=== PATIENT | female | born 1950 | race Caucasian/White ===

== ENCOUNTER → 2019-02-18 | Outpatient (CLI) | payer MEDICARE, BC ==
[2019-02-18 10:13] LABS: EOS # 0.1 (0.04-0.40); EOS % 1.4 % (1.0-5.0); HEMATOCRIT 42.5 % (37.0-47.0); HEMOGLOBIN 14.1 g/dL (12.5-16.0); LYMPH# 1.9 (1.50-4.00); MEAN CELL VOLUME 91 fl (78-100); MEAN CORPUSCULAR HEMOGLOBIN 30 pg (27-31); MEAN CORPUSCULAR HGB CONC 33 g/dL (33-37); MEAN PLATELET VOLUME 9.2 fl (7.4-10.4); NEU # 6.4 (1.40-6.50); PLATELET COUNT 347 K/mm3 (130-400); RED BLOOD COUNT 4.69 M/mm3 (4.10-5.30); WHITE BLOOD COUNT 9.4 K/mm3 (4.8-10.8)
[2019-02-18 10:21] LABS: ALBUMIN 4.3 g/dL (3.4-4.8); POTASSIUM 3.5 mmol/L (3.5-5.1)
[2019-02-18 10:22] LABS: CALCIUM 10.9 mg/dL (8.3-10.5)
[2019-02-18 10:23] LABS: TOTAL PROTEIN 7.4 g/dL (6.2-8.1)
[2019-02-18 10:25] LABS: TOTAL BILIRUBIN 0.5 mg/dL (0.2-1.2)
[2019-02-18 11:16] LABS: ERYTHROCYTE SEDIMENTATION RATE 23 mm/hr (0-30)
[2019-02-18 15:16] LABS: PH-URINE 5.5 (5.0 - 8.0); URINE APPEARANCE HAZY; URINE COLOR YELLOW; URINE PROTEIN(semi-quant) TRACE mg/dL (NEGATIVE)
[2019-02-18 15:17] LABS: URINE BILIRUBIN NEGATIVE (NEGATIVE); URINE BLOOD NEGATIVE (NEGATIVE); URINE KETONE TRACE (NEGATIVE); URINE LEUKOCYTE ESTERASE TRACE (NEGATIVE); URINE MUCUS PRESENT (NOT PRESENT); URINE NITRATE NEGATIVE (NEGATIVE); URINE UROBILINOGEN NORMAL (NORMAL)
== END ==
LOC: LAB 09:59
PROVIDERS: Internal Medicine
DX: E11.9 Type 2 diabetes mellitus without complications (principal); E78.5 Hyperlipidemia, unspecified; I10 Essential (primary) hypertension; K90.9 Intestinal malabsorption, unspecified; I47.1 Supraventricular tachycardia

== ENCOUNTER → 2019-03-22 | Outpatient (CLI) | payer MEDICARE, BC ==
[2019-03-22 07:41] LABS: CLUE CELLS NOT OBSERVED (Not Observd)
== END ==
LOC: LAB 07:34
PROVIDERS: Nurse Practitioner
DX: N89.8 Other specified noninflammatory disorders of vagina (principal)
CPT/HCPCS: Q0111

== ENCOUNTER → 2019-05-25 | Outpatient (CLI) | payer MEDICARE, BC | LOC: LAB 07:23 | DX: E11.9 Type 2 diabetes mellitus without complications (principal); I10 Essential (primary) hypertension; I47.1 Supraventricular tachycardia; E78.5 Hyperlipidemia, unspecified ==

== ENCOUNTER 2019-08-11 07:21 | Emergency (ER) | payer MEDICARE, BC ==
[~2019-08-11] VITALS: Ht 157.5 cm; Wt 86.4 kg
[2019-08-11] MEDS ORDERED: BYDUREON B2 MG/0.85 (08:22)
[2019-08-11] MEDS ORDERED: PIOGLITAZONE HY45 MG PO (08:23)
[2019-08-11] MEDS ORDERED: IBU800 M1 PO (08:23)
[2019-08-11] MEDS ORDERED: SPIRONOLACTONE50 M1 PO (08:23)
[2019-08-11] MEDS ORDERED: HYDROCHLOROTHIA50 M1 PO (08:24)
[2019-08-11] MEDS ORDERED: FLONASE ALLERG9.9 ML NS (08:25)
[2019-08-11] MEDS ORDERED: GERITOL COMPLET1 TA1 PO (08:42)
[2019-08-11] MEDS ORDERED: FEXOFENADINE H180 M1 PO (08:42)
[2019-08-11] MEDS ORDERED: [UNRECOGNIZED DRUG - OTHER] PO (08:44)
[2019-08-11 09:20] LABS: HEMOGLOBIN 15.1 g/dL (12.5-16.0); MEAN CELL VOLUME 89 fl (78-100); MEAN CORPUSCULAR HEMOGLOBIN 31 pg (27-31); MEAN CORPUSCULAR HGB CONC 34 g/dL (33-37); MEAN PLATELET VOLUME 9.5 fl (7.4-10.4); PLATELET COUNT 388 K/mm3 (130-400); RED BLOOD COUNT 4.93 M/mm3 (4.10-5.30); RED CELL DISTRIBUTION WIDTH 13.2 % (11.5-14.5); WHITE BLOOD COUNT 11.2 K/mm3 (4.8-10.8)
[2019-08-11 09:26] LABS: ALBUMIN 4.7 g/dL (3.4-4.8)
[2019-08-11 09:27] LABS: CALCIUM 10.6 mg/dL (8.3-10.5)
[2019-08-11 09:29] LABS: TOTAL PROTEIN 7.7 g/dL (6.2-8.1)
[2019-08-11 09:30] LABS: PROTHROMBIN TIME 10.4 SECONDS (9.0-12.0); TOTAL BILIRUBIN 0.7 mg/dL (0.2-1.2)
[2019-08-11 09:36] LABS: LYMPHOCYTE 13 % (20-51); MONOCYTE 7 % (3-10); NEUTROPHILS 80 % (42-75)
[2019-08-11] MEDS ORDERED: POTASSIUM CHLO20 ME3 PO (11:22)
[2019-08-11 11:33] VITALS: BP 143/61
== END 2019-08-11 12:05 | disposition home or self-care (01) ==
LOC: ED 07:21
PROVIDERS: Physician Assistant
DX: K60.2 Anal fissure, unspecified (principal); K62.5 Hemorrhage of anus and rectum; E87.6 Hypokalemia; E87.1 Hypo-osmolality and hyponatremia; E11.9 Type 2 diabetes mellitus without complications; K21.9 Gastro-esophageal reflux disease without esophagitis; Z79.1 Long term (current) use of non-steroidal anti-inflammatories (NSAID); Z79.84 Long term (current) use of oral hypoglycemic drugs; Z85.828 Personal history of other malignant neoplasm of skin; Z87.19 Personal history of other diseases of the digestive system; Z88.0 Allergy status to penicillin; Z88.1 Allergy status to other antibiotic agents; Z88.8 Allergy status to other drugs, medicaments and biological substances
CPT/HCPCS: Q9967

== ENCOUNTER → 2019-09-27 | Outpatient (CLI) | payer MEDICARE, BC ==
[~2019-09-27] MED LIST: BYDUREON B2 MG/0.85; FEXOFENADINE H180 M1 PO; FLONASE ALLERG9.9 ML NS; GERITOL COMPLET1 TA1 PO; HYDROCHLOROTHIA50 M1 PO; IBU800 M1 PO; PIOGLITAZONE HY45 MG PO; POTASSIUM CHLO20 ME3 PO; SPIRONOLACTONE50 M1 PO; [UNRECOGNIZED DRUG - OTHER] PO
[2019-09-27 07:49] LABS: EOS # 0.1 (0.04-0.40); EOS % 1.1 % (1.0-5.0); HEMATOCRIT 41.4 % (37.0-47.0); HEMOGLOBIN 13.7 g/dL (12.5-16.0); LYMPH# 1.5 (1.50-4.00); MEAN CELL VOLUME 92 fl (78-100); MEAN CORPUSCULAR HEMOGLOBIN 30 pg (27-31); MEAN CORPUSCULAR HGB CONC 33 g/dL (33-37); MEAN PLATELET VOLUME 9.3 fl (7.4-10.4); MONO # 0.7 (0.20-0.80); NEU # 4.8 (1.40-6.50); PLATELET COUNT 364 K/mm3 (130-400); RED BLOOD COUNT 4.51 M/mm3 (4.10-5.30); WHITE BLOOD COUNT 7.1 K/mm3 (4.8-10.8)
[2019-09-27 08:22] LABS: ALBUMIN 4.3 g/dL (3.4-4.8); POTASSIUM 3.5 mmol/L (3.5-5.1)
[2019-09-27 08:23] LABS: CALCIUM 10.2 mg/dL (8.3-10.5)
[2019-09-27 08:25] LABS: TOTAL PROTEIN 7.1 g/dL (6.2-8.1)
[2019-09-27 08:27] LABS: TOTAL BILIRUBIN 0.6 mg/dL (0.2-1.2)
[2019-09-27 09:42] LABS: ERYTHROCYTE SEDIMENTATION RATE 30 mm/hr (0-30)
[2019-09-27 11:55] LABS: URINE APPEARANCE CLOUDY; URINE BILIRUBIN NEGATIVE (NEGATIVE); URINE BLOOD TRACE (NEGATIVE); URINE COLOR YELLOW; URINE GLUCOSE NEGATIVE (NEGATIVE); URINE KETONE SMALL (NEGATIVE); URINE LEUKOCYTE ESTERASE 2+ (NEGATIVE); URINE NITRATE NEGATIVE (NEGATIVE); URINE PROTEIN(semi-quant) NEGATIVE (NEGATIVE); URINE UROBILINOGEN NORMAL (NORMAL); URINE WBC >50 /hpf (0-3)
== END ==
LOC: LAB 07:20
PROVIDERS: Internal Medicine
DX: E11.9 Type 2 diabetes mellitus without complications (principal); E78.5 Hyperlipidemia, unspecified; K90.9 Intestinal malabsorption, unspecified; I10 Essential (primary) hypertension; I47.1 Supraventricular tachycardia

== ENCOUNTER → 2019-12-29 | Outpatient (CLI) | payer MEDICARE, BC ==
[2019-12-29 08:01] LABS: ALBUMIN 4.2 g/dL (3.4-4.8)
[2019-12-29 08:02] LABS: CALCIUM 9.8 mg/dL (8.3-10.5)
[2019-12-29 08:04] LABS: TOTAL PROTEIN 7.3 g/dL (6.2-8.1)
[2019-12-29 08:05] LABS: TOTAL BILIRUBIN 0.4 mg/dL (0.2-1.2)
== END ==
LOC: LAB 07:39
PROVIDERS: Internal Medicine
DX: E11.9 Type 2 diabetes mellitus without complications (principal); E78.5 Hyperlipidemia, unspecified; I10 Essential (primary) hypertension; I47.1 Supraventricular tachycardia

== ENCOUNTER 2020-04-05 16:48 | Observation (INO) | payer MEDICARE, BC ==
[~2020-04-05] VITALS: Ht 157.5 cm; Wt 85.5 kg
[2020-04-05 17:27] LABS: HEMOGLOBIN 14.7 g/dL (12.5-16.0); MEAN CELL VOLUME 88 fl (78-100); MEAN CORPUSCULAR HEMOGLOBIN 30 pg (27-31); MEAN CORPUSCULAR HGB CONC 34 g/dL (33-37); PLATELET COUNT 292 K/mm3 (130-400); RED CELL DISTRIBUTION WIDTH 12.5 % (11.5-14.5); WHITE BLOOD COUNT 8.8 K/mm3 (4.8-10.8)
[2020-04-05 17:31] LABS: LYMPHOCYTE 10 % (20-51); NEUTROPHILS 77 % (42-75)
[2020-04-05 17:32] LABS: MONOCYTE 12 % (3-10)
[2020-04-05 17:37] LABS: ALBUMIN 4.5 g/dL (3.4-4.8)
[2020-04-05 17:38] LABS: POTASSIUM 3.1 mmol/L (3.5-5.1)
[2020-04-05 17:39] LABS: CALCIUM 9.7 mg/dL (8.3-10.5)
[2020-04-05 17:40] LABS: TOTAL PROTEIN 7.8 g/dL (6.2-8.1)
[2020-04-05 17:42] LABS: TOTAL BILIRUBIN 0.7 mg/dL (0.2-1.2)
[2020-04-05 17:52] LABS: TROPONIN-I 0.04 ng/mL (<0.030)
[2020-04-05 18:34] VITALS: BP 142/73
--- NOTE | 2020-04-05 19:00 | NUR ---
Patient admitted via wheel chair to room 202 with DX of covid 19, dizziness, hyponatremia, hypokalemia and elevated troponin. Patient alert and oriented x 4. Covid precautions maintained. See admission assessment. Patient denies pain at this time, only voices concern about getting her sandra MARILIN.
[2020-04-05 20:04] VITALS: BP 147/67
[2020-04-05 20:10] VITALS: BP 147/67
--- NOTE | 2020-04-05 20:35 | NUR ---
Tele initiated by staff at 2034.
--- NOTE | 2020-04-05 22:30 | NUR ---
Dolores FISHMAN notified of patients temp 100.9. Patient reports just feeling chilled. Room temp increased to 72 degrees per patient request and tylenol given.
[2020-04-05 22:49] VITALS: BP 130/64
--- NOTE | 2020-04-06 00:50 | NUR ---
Patient rests with eyes closed. Respirations with ease.
--- NOTE | 2020-04-06 01:34 | NUR ---
Patient up to the bathroom and UA obtained and sent to lab.
[2020-04-06 01:41] VITALS: BP 128/66
[2020-04-06 02:11] LABS: PH-URINE 5.5 (5.0 - 8.0); URINE APPEARANCE HAZY; URINE BILIRUBIN NEGATIVE (NEGATIVE); URINE BLOOD TRACE (NEGATIVE); URINE COLOR YELLOW; URINE GLUCOSE NEGATIVE (NEGATIVE); URINE KETONE 1+ (NEGATIVE); URINE LEUKOCYTE ESTERASE 1+ (NEGATIVE); URINE NITRATE NEGATIVE (NEGATIVE); URINE PROTEIN(semi-quant) 2+ mg/dL (NEGATIVE); URINE UROBILINOGEN NORMAL (NORMAL)
[2020-04-06 02:12] LABS: URINE MUCUS PRESENT (NOT PRESENT); URINE WBC 16-30 /hpf (0-3)
--- NOTE | 2020-04-06 03:48 | NUR ---
Patient awake and up to the bathroom and back to bed accompanied by TAKER AWAY. States " I'm doing ok" and "yes I've been getting sleep".
[2020-04-06 06:20] VITALS: BP 128/65
--- NOTE | 2020-04-06 06:32 | NUR ---
Patient reports back pain and tylenol given. Warm blanket given.
[2020-04-06 06:51] LABS: HEMATOCRIT 39.9 % (37.0-47.0); HEMOGLOBIN 13.7 g/dL (12.5-16.0); MEAN CELL VOLUME 90 fl (78-100); MEAN CORPUSCULAR HEMOGLOBIN 31 pg (27-31); MEAN CORPUSCULAR HGB CONC 34 g/dL (33-37); MEAN PLATELET VOLUME 9.1 fl (7.4-10.4); PLATELET COUNT 281 K/mm3 (130-400); RED BLOOD COUNT 4.46 M/mm3 (4.10-5.30); RED CELL DISTRIBUTION WIDTH 12.5 % (11.5-14.5); WHITE BLOOD COUNT 9.2 K/mm3 (4.8-10.8)
[2020-04-06 07:16] LABS: POTASSIUM 3.1 mmol/L (3.5-5.1)
[2020-04-06 07:17] LABS: CALCIUM 8.8 mg/dL (8.3-10.5)
[2020-04-06 07:21] LABS: BAND 1 % (0-10); LYMPHOCYTE 10 % (20-51); MONOCYTE 10 % (3-10); NEUTROPHILS 79 % (42-75)
--- NOTE | 2020-04-06 10:00 | NUR ---
PT AMBULATES TO RESTROOM WITH NO ASSISTANCE, THIS RN AT HER SIDE FOR SAFETY BUT DOES NOT ASSIST HER. THE PT TAKES HERSELF OFF OF TOILET AND IS ABLE TO CLEAN HERSELF AFTER TOILETING. THE PT THEN RETURNS TO THE BED. THE PT HAD A LARGE, LOOSE BOWEL MOVEMENT. RESPIRATIONS ARE EVEN AND UNLABORED AND THE PT IS ALERT AND ORIENTED. THE PT NOW RESTS IN BED COMFORTABLY.
[2020-04-06 11:47] VITALS: BP 126/64
[2020-04-06 13:54] VITALS: BP 124/57
[2020-04-06 17:37] VITALS: BP 112/88
--- NOTE | 2020-04-06 20:00 | NUR ---
Patient rests in bed watching TV. Alert and oriented. Denies pain. Temp 100.7 Skin to back moist. HS meds all reviewed and given. IV RAC patent without redness or swelling. Occasional dry couph noted.
--- NOTE | 2020-04-07 02:30 | NUR ---
Patients temp 102.9 and tylenol 1000mg given. States "I feel very comfortable right now". Up to the bathroom and back to bed. Patient required assist to sit up on side of bed.
[2020-04-07 02:44] VITALS: BP 136/57
--- NOTE | 2020-04-07 05:00 | NUR ---
Patient has been resting with eyes closed. Denies pain or needs. Temp 99.6. Skin moist.
[2020-04-07 05:35] VITALS: BP 130/60
[2020-04-07 07:44] LABS: HEMATOCRIT 37.4 % (37.0-47.0); HEMOGLOBIN 12.5 g/dL (12.5-16.0); MEAN CELL VOLUME 91 fl (78-100); MEAN CORPUSCULAR HEMOGLOBIN 30 pg (27-31); MEAN CORPUSCULAR HGB CONC 33 g/dL (33-37); MEAN PLATELET VOLUME 8.8 fl (7.4-10.4); PLATELET COUNT 283 K/mm3 (130-400); RED BLOOD COUNT 4.12 M/mm3 (4.10-5.30); RED CELL DISTRIBUTION WIDTH 12.8 % (11.5-14.5); WHITE BLOOD COUNT 11.5 K/mm3 (4.8-10.8)
[2020-04-07 07:52] LABS: POTASSIUM 3.5 mmol/L (3.5-5.1); SODIUM 132 mmol/L (136-145)
[2020-04-07 07:53] LABS: CALCIUM 8.6 mg/dL (8.3-10.5)
[2020-04-07 07:54] LABS: GLUCOSE 115 mg/dL (65-105)
[2020-04-07 07:55] LABS: CARBON DIOXIDE 22 mmol/L (23-31)
[2020-04-07 08:47] LABS: BAND 3 % (0-10); LYMPHOCYTE 6 % (20-51); MONOCYTE 6 % (3-10); NEUTROPHILS 85 % (42-75)
[2020-04-07 08:51] LABS: ERYTHROCYTE SEDIMENTATION RATE 53 mm/hr (0-30)
[2020-04-07 08:52] LABS: D-DIMER 0.49 mg/L FEU (0.15-0.50)
[2020-04-07 08:53] LABS: TROPONIN-I < 0.03 ng/mL (<0.030)
[2020-04-07 10:20] VITALS: BP 148/63
--- NOTE | 2020-04-07 10:30 | NUR ---
THE PT'S OXYGEN SATURATION IS CHECKED WHILE RESTING. THE OXYGEN SATURATIONS REMAIN AT 98-99% WHILE RESTING IN BED. WHILE AMBULATING THE PT'S OXYGEN SATURATION REMAINS ABOVE 94% ON ROOM AIR. THE PT IS PLACED BACK INTO THE BED AT THIS TIME. RESPIRATIONS ARE EVEN AND UNLABORED AND THE PT IS ALERT AND ORIENTED.
[2020-04-07 10:53] VITALS: BP 148/63
--- NOTE | 2020-04-07 13:10 | NUR ---
DR. RODNEY TO BEDSIDE, THE PT IS TO BE ADMITTED ACUTE. THE PT IS IN AGREEANCE WITH PLAN.
== END 2020-04-07 15:00 | disposition other institution (70) ==
LOC: ED 16:48 → MED/SURG 19:00
PROVIDERS: Physician Assistant; ADMIT Physician Assistant
DX: U07.1 COVID-19 (principal); I95.9 Hypotension, unspecified; E87.6 Hypokalemia; N39.0 Urinary tract infection, site not specified; E11.9 Type 2 diabetes mellitus without complications; E87.1 Hypo-osmolality and hyponatremia; J18.9 Pneumonia, unspecified organism; D72.829 Elevated white blood cell count, unspecified; M19.90 Unspecified osteoarthritis, unspecified site; E78.5 Hyperlipidemia, unspecified; I10 Essential (primary) hypertension; Z79.51 Long term (current) use of inhaled steroids; Z88.0 Allergy status to penicillin; Z88.2 Allergy status to sulfonamides; Z88.8 Allergy status to other drugs, medicaments and biological substances
CPT/HCPCS: G0378; J1650; J3480; J7030

== ENCOUNTER 2020-04-07 13:08 | Inpatient (IN) | payer MEDICARE, BC ==
[~2020-04-07] VITALS: Ht 157.5 cm; Wt 85.5 kg
[2020-04-07 13:33] VITALS: BP 136/63
[2020-04-07 14:48] VITALS: BP 136/63
[2020-04-07 16:02] LABS: PROTHROMBIN TIME 10.9 SECONDS (9.0-12.0)
[2020-04-07 18:25] VITALS: BP 133/66
[2020-04-07 21:46] VITALS: BP 150/69
[2020-04-08 02:11] VITALS: BP 135/70
[2020-04-08 05:51] VITALS: BP 113/67
[2020-04-08 06:57] LABS: HEMATOCRIT 35.9 % (37.0-47.0); HEMOGLOBIN 12.2 g/dL (12.5-16.0); MEAN CELL VOLUME 89 fl (78-100); MEAN CORPUSCULAR HEMOGLOBIN 30 pg (27-31); MEAN CORPUSCULAR HGB CONC 34 g/dL (33-37); MEAN PLATELET VOLUME 9.1 fl (7.4-10.4); PLATELET COUNT 314 K/mm3 (130-400); RED BLOOD COUNT 4.03 M/mm3 (4.10-5.30); RED CELL DISTRIBUTION WIDTH 12.6 % (11.5-14.5); WHITE BLOOD COUNT 8.4 K/mm3 (4.8-10.8)
[2020-04-08 07:05] LABS: ALBUMIN 3.4 g/dL (3.4-4.8); POTASSIUM 3.7 mmol/L (3.5-5.1)
[2020-04-08 07:07] LABS: CALCIUM 8.7 mg/dL (8.3-10.5)
[2020-04-08 07:08] LABS: TOTAL PROTEIN 6.3 g/dL (6.2-8.1)
[2020-04-08 07:10] LABS: TOTAL BILIRUBIN 0.4 mg/dL (0.2-1.2)
[2020-04-08 07:28] LABS: BAND 1 % (0-10); LYMPHOCYTE 7 % (20-51); MONOCYTE 6 % (3-10); NEUTROPHILS 86 % (42-75)
[2020-04-08 10:00] VITALS: BP 119/64
[2020-04-08 14:51] VITALS: BP 159/69
[2020-04-08 18:00] VITALS: BP 130/65
[2020-04-08 22:17] VITALS: BP 143/73
[2020-04-09 02:34] VITALS: BP 142/78
[2020-04-09 05:36] VITALS: BP 136/74
[2020-04-09 10:00] VITALS: BP 147/69
[2020-04-09 14:00] VITALS: BP 139/68
[2020-04-09 17:36] VITALS: BP 168/81
[2020-04-09 22:08] VITALS: BP 157/76
[2020-04-10 02:00] VITALS: BP 141/77
[2020-04-10 05:49] VITALS: BP 166/82
[2020-04-10 07:38] LABS: ALBUMIN 3.6 g/dL (3.4-4.8); POTASSIUM 3.8 mmol/L (3.5-5.1)
[2020-04-10 07:41] LABS: TOTAL PROTEIN 6.4 g/dL (6.2-8.1)
[2020-04-10 07:42] LABS: TOTAL BILIRUBIN 0.4 mg/dL (0.2-1.2)
[2020-04-10 08:12] LABS: HEMATOCRIT 36.7 % (37.0-47.0); HEMOGLOBIN 12.4 g/dL (12.5-16.0); MEAN CELL VOLUME 89 fl (78-100); MEAN CORPUSCULAR HEMOGLOBIN 30 pg (27-31); MEAN CORPUSCULAR HGB CONC 34 g/dL (33-37); MEAN PLATELET VOLUME 9.5 fl (7.4-10.4); PLATELET COUNT 482 K/mm3 (130-400); RED BLOOD COUNT 4.11 M/mm3 (4.10-5.30); RED CELL DISTRIBUTION WIDTH 12.7 % (11.5-14.5); WHITE BLOOD COUNT 10.7 K/mm3 (4.8-10.8)
[2020-04-10 08:42] LABS: LYMPHOCYTE 16 % (20-51); MONOCYTE 12 % (3-10); NEUTROPHILS 72 % (42-75)
[2020-04-10 10:00] VITALS: BP 128/112
[2020-04-10 14:00] VITALS: BP 147/72
[2020-04-10 17:15] VITALS: BP 140/70
[2020-04-10 22:00] VITALS: BP 141/89
[2020-04-11 02:30] VITALS: BP 152/92
[2020-04-11 05:39] VITALS: BP 142/81
[2020-04-11 06:21] LABS: HEMATOCRIT 36.7 % (37.0-47.0); HEMOGLOBIN 12.4 g/dL (12.5-16.0); MEAN CELL VOLUME 89 fl (78-100); MEAN CORPUSCULAR HEMOGLOBIN 30 pg (27-31); MEAN CORPUSCULAR HGB CONC 34 g/dL (33-37); MEAN PLATELET VOLUME 8.9 fl (7.4-10.4); PLATELET COUNT 471 K/mm3 (130-400); RED BLOOD COUNT 4.12 M/mm3 (4.10-5.30); RED CELL DISTRIBUTION WIDTH 12.9 % (11.5-14.5); WHITE BLOOD COUNT 8.5 K/mm3 (4.8-10.8)
[2020-04-11 06:27] LABS: ALBUMIN 3.8 g/dL (3.4-4.8)
[2020-04-11 06:28] LABS: POTASSIUM 4.1 mmol/L (3.5-5.1)
[2020-04-11 06:29] LABS: CALCIUM 9.4 mg/dL (8.3-10.5)
[2020-04-11 06:30] LABS: TOTAL PROTEIN 6.6 g/dL (6.2-8.1)
[2020-04-11 06:32] LABS: TOTAL BILIRUBIN 0.4 mg/dL (0.2-1.2)
[2020-04-11 07:00] LABS: LYMPHOCYTE 29 % (20-51); MONOCYTE 9 % (3-10); MYELOCYTE 1 % (0-0); NEUTROPHILS 60 % (42-75)
[2020-04-11 10:19] VITALS: BP 133/61
[2020-04-11 14:15] VITALS: BP 169/76
[2020-04-11] MEDS ORDERED: DECADRON6 M1 PO (15:28)
== END 2020-04-11 18:18 | disposition home or self-care (01) | DRG 177 ==
LOC: MED/SURG 13:08
PROVIDERS: Family Medicine; ADMIT Physician Assistant
PROC: XW033E5 Introduction of Remdesivir Anti-infective into Peripheral Vein, Percutaneous Approach, New Technology Group 5 (ICD-10-PCS; principal; 2020-04-07)
DX: U07.1 COVID-19 (principal); J12.89 Other viral pneumonia; E87.1 Hypo-osmolality and hyponatremia; N39.0 Urinary tract infection, site not specified; E11.9 Type 2 diabetes mellitus without complications; I10 Essential (primary) hypertension; E87.6 Hypokalemia; D72.829 Elevated white blood cell count, unspecified; Z66 Do not resuscitate; E78.5 Hyperlipidemia, unspecified; Z88.0 Allergy status to penicillin; Z88.2 Allergy status to sulfonamides
CPT/HCPCS: J0456; J0696; J1650; J7050

== ENCOUNTER → 2020-06-23 | Outpatient (CLI) | payer MEDICARE, BC ==
[~2020-06-23] MED LIST changes: +DECADRON6 M1 PO
== END ==
LOC: LAB 07:07
DX: E11.9 Type 2 diabetes mellitus without complications (principal); E78.5 Hyperlipidemia, unspecified

== ENCOUNTER → 2020-07-10 | Outpatient (CLI) | payer MEDICARE, BC ==
[2020-07-10 14:40] LABS: POTASSIUM 4.4 mmol/L (3.5-5.1)
[2020-07-10 14:41] LABS: CALCIUM 10.1 mg/dL (8.3-10.5)
== END ==
LOC: LAB 14:13
PROVIDERS: Internal Medicine
DX: I10 Essential (primary) hypertension (principal)

== ENCOUNTER → 2020-09-26 | Outpatient (CLI) | payer MEDICARE, BC ==
[2020-06-23 07:36] LABS: ALBUMIN 4.3 g/dL (3.4-4.8)
[2020-06-23 07:38] LABS: TOTAL PROTEIN 6.9 g/dL (6.2-8.1)
[2020-06-23 08:24] LABS: EOS # 0.1 (0.04-0.40); EOS % 1.9 % (1.0-5.0); HEMATOCRIT 43.3 % (37.0-47.0); LYMPH# 1.2 (1.50-4.00); MEAN CELL VOLUME 96 fl (78-100); MEAN CORPUSCULAR HEMOGLOBIN 31 pg (27-31); MEAN CORPUSCULAR HGB CONC 32 g/dL (33-37); MEAN PLATELET VOLUME 9.9 fl (7.4-10.4); MONO # 0.7 (0.20-0.80); NEU # 3.7 (1.40-6.50); PLATELET COUNT 318 K/mm3 (130-400); RED BLOOD COUNT 4.52 M/mm3 (4.10-5.30); RED CELL DISTRIBUTION WIDTH 14.4 % (11.5-14.5); WHITE BLOOD COUNT 5.7 K/mm3 (4.8-10.8)
[2020-06-23 09:28] LABS: POTASSIUM 4.4 mmol/L (3.5-5.1)
[2020-06-23 09:29] LABS: CALCIUM 9.6 mg/dL (8.3-10.5)
[2020-06-23 09:32] LABS: TOTAL BILIRUBIN 0.5 mg/dL (0.2-1.2)
== END ==
LOC: RAD 12-08 09:15 → MAMMO 12-08 09:15 → RAD 02-16 09:15
PROVIDERS: Internal Medicine
DX: Z13.820 Encounter for screening for osteoporosis (principal); M85.80 Other specified disorders of bone density and structure, unspecified site

== ENCOUNTER → 2020-09-26 | Outpatient (CLI) | payer MEDICARE, BC | LOC: MAMMO 12-08 08:30 | DX: Z12.31 Encounter for screening mammogram for malignant neoplasm of breast (principal) ==

== ENCOUNTER → 2020-10-03 | Outpatient (CLI) | payer MEDICARE, BC ==
[2020-10-03 07:28] LABS: BASO # 0.02 (0.02-0.10); EOS # 0.08 (0.04-0.40); EOS % 1.1 % (1.0-5.0); HEMATOCRIT 43.5 % (37.0-47.0); HEMOGLOBIN 14.5 g/dL (12.5-16.0); LYMPH# 1.34 (1.50-4.00); MEAN CELL VOLUME 93 fl (78-100); MEAN CORPUSCULAR HEMOGLOBIN 31 pg (27-31); MEAN CORPUSCULAR HGB CONC 33 g/dL (33-37); MONO # 0.66 (0.20-0.80); NEU # 5.48 (1.40-6.50); PLATELET COUNT 302 K/mm3 (130-400); RED CELL DISTRIBUTION WIDTH 13.5 % (11.5-14.5); WHITE BLOOD COUNT 7.6 K/mm3 (4.8-10.8)
[2020-10-03 07:48] LABS: ALBUMIN 4.5 g/dL (3.4-4.8); POTASSIUM 4.1 mmol/L (3.5-5.1)
[2020-10-03 07:49] LABS: CALCIUM 9.7 mg/dL (8.3-10.5)
[2020-10-03 07:51] LABS: TOTAL PROTEIN 7.4 g/dL (6.2-8.1)
[2020-10-03 07:52] LABS: TOTAL BILIRUBIN 0.7 mg/dL (0.2-1.2)
== END ==
LOC: LAB 07:00
PROVIDERS: Internal Medicine
DX: E78.5 Hyperlipidemia, unspecified (principal); E11.9 Type 2 diabetes mellitus without complications

== ENCOUNTER → 2020-10-05 | Outpatient (CLI) | payer MEDICARE, BC | LOC: MAMMO 12:33 | DX: R92.1 Mammographic calcification found on diagnostic imaging of breast (principal) ==

== ENCOUNTER → 2020-10-09 | Outpatient (CLI) | payer MEDICARE, BC | LOC: LAB 08:53 | DX: I10 Essential (primary) hypertension (principal) ==

== ENCOUNTER → 2021-01-01 | Outpatient (CLI) | payer MEDICARE, BC ==
[2021-01-01 07:55] LABS: BASO # 0.03 (0.02-0.10); EOS # 0.11 (0.04-0.40); EOS % 1.9 % (1.0-5.0); HEMATOCRIT 44.1 % (37.0-47.0); HEMOGLOBIN 14.2 g/dL (12.5-16.0); LYMPH# 1.34 (1.50-4.00); MEAN CELL VOLUME 96 fl (78-100); MEAN CORPUSCULAR HEMOGLOBIN 31 pg (27-31); MEAN CORPUSCULAR HGB CONC 32 g/dL (33-37); MEAN PLATELET VOLUME 9.2 fl (7.4-10.4); MONO # 0.63 (0.20-0.80); NEU # 3.74 (1.40-6.50); PLATELET COUNT 275 K/mm3 (130-400); RED BLOOD COUNT 4.61 M/mm3 (4.10-5.30); RED CELL DISTRIBUTION WIDTH 12.7 % (11.5-14.5); WHITE BLOOD COUNT 5.9 K/mm3 (4.8-10.8)
[2021-01-01 07:57] LABS: ALBUMIN 4.3 g/dL (3.4-4.8); POTASSIUM 3.8 mmol/L (3.5-5.1)
[2021-01-01 07:58] LABS: CALCIUM 9.6 mg/dL (8.3-10.5)
[2021-01-01 08:00] LABS: TOTAL PROTEIN 7.3 g/dL (6.2-8.1)
[2021-01-01 08:02] LABS: TOTAL BILIRUBIN 0.5 mg/dL (0.2-1.2)
== END ==
LOC: LAB 07:07
PROVIDERS: Internal Medicine
DX: E78.5 Hyperlipidemia, unspecified (principal); E11.9 Type 2 diabetes mellitus without complications; M85.80 Other specified disorders of bone density and structure, unspecified site

== ENCOUNTER → 2021-04-04 | Outpatient (CLI) | payer MEDICARE, BC ==
[2021-04-04 07:18] LABS: ALBUMIN 4.6 g/dL (3.4-4.8); POTASSIUM 4.5 mmol/L (3.5-5.1)
[2021-04-04 07:21] LABS: TOTAL PROTEIN 7.4 g/dL (6.2-8.1)
[2021-04-04 07:22] LABS: TOTAL BILIRUBIN 0.5 mg/dL (0.2-1.2)
[2021-04-04 07:27] LABS: MAGNESIUM 2.03 mg/dL (1.60-2.60)
== END ==
LOC: LAB 06:55
PROVIDERS: Internal Medicine
DX: E11.9 Type 2 diabetes mellitus without complications (principal); E78.5 Hyperlipidemia, unspecified; I10 Essential (primary) hypertension

== ENCOUNTER → 2021-07-03 | Outpatient (CLI) | payer MEDICARE, BC ==
[2021-07-03 07:49] LABS: BASO # 0.03 K/mm3 (0.02-0.10); EOS # 0.24 K/mm3 (0.04-0.40); EOS % 4.1 % (1.0-5.0); HEMATOCRIT 41.9 % (37.0-47.0); HEMOGLOBIN 13.6 g/dL (12.5-16.0); LYMPH# 1.62 K/mm3 (1.50-4.00); MEAN CELL VOLUME 96 fl (78-100); MEAN CORPUSCULAR HEMOGLOBIN 31 pg (27-31); MEAN CORPUSCULAR HGB CONC 33 g/dL (33-37); MEAN PLATELET VOLUME 9.1 fl (7.4-10.4); MONO # 0.51 K/mm3 (0.20-0.80); NEU # 3.48 K/mm3 (1.40-6.50); PLATELET COUNT 306 K/mm3 (130-400); RED BLOOD COUNT 4.36 M/mm3 (4.10-5.30); WHITE BLOOD COUNT 5.9 K/mm3 (4.8-10.8)
[2021-07-03 07:53] LABS: ALBUMIN 4.3 g/dL (3.4-4.8)
[2021-07-03 07:54] LABS: POTASSIUM 4.4 mmol/L (3.5-5.1)
[2021-07-03 07:55] LABS: CALCIUM 9.9 mg/dL (8.3-10.5)
[2021-07-03 07:58] LABS: TOTAL BILIRUBIN 0.4 mg/dL (0.2-1.2)
[2021-07-03 08:02] LABS: MAGNESIUM 1.99 mg/dL (1.60-2.60)
[2021-07-03 12:12] LABS: URINE APPEARANCE CLEAR; URINE BILIRUBIN NEGATIVE (NEGATIVE); URINE BLOOD NEGATIVE (NEGATIVE); URINE COLOR YELLOW; URINE KETONE NEGATIVE (NEGATIVE); URINE LEUKOCYTE ESTERASE 1+ (NEGATIVE); URINE MUCUS PRESENT (NOT PRESENT); URINE NITRATE NEGATIVE (NEGATIVE); URINE PROTEIN(semi-quant) NEGATIVE (NEGATIVE); URINE UROBILINOGEN NORMAL (NORMAL)
== END ==
LOC: LAB 07:11
PROVIDERS: Internal Medicine
DX: I10 Essential (primary) hypertension (principal); E11.9 Type 2 diabetes mellitus without complications; M85.80 Other specified disorders of bone density and structure, unspecified site

== ENCOUNTER 2021-07-18 08:07 | Outpatient (RCR) | payer MEDICARE, BC | END 2021-08-16 | disposition home or self-care (01) | LOC: PT | DX: M15.9 Polyosteoarthritis, unspecified (principal) ==

== ENCOUNTER 2021-08-21 08:38 | Outpatient (RCR) | payer MEDICARE, BC | END 2021-09-15 | disposition home or self-care (01) | LOC: PT | DX: M15.9 Polyosteoarthritis, unspecified (principal) ==

== ENCOUNTER 2021-08-21 08:39 | Outpatient (RCR) | payer MEDICARE, BC | END 2021-09-15 | disposition home or self-care (01) | LOC: OT | DX: M79.641 Pain in right hand (principal) ==

== ENCOUNTER 2021-09-18 08:36 | Outpatient (RCR) | payer MEDICARE, BC | END 2021-09-25 17:00 | disposition home or self-care (01) | LOC: OT 08:36 | DX: M79.641 Pain in right hand (principal) ==

== ENCOUNTER 2021-09-18 08:36 | Outpatient (RCR) | payer MEDICARE, BC | END 2021-10-16 | disposition home or self-care (01) | LOC: PT | DX: M15.9 Polyosteoarthritis, unspecified (principal) ==

== ENCOUNTER → 2021-10-01 | Outpatient (CLI) | payer MEDICARE, BC ==
[2021-10-01 09:13] LABS: ALBUMIN 4.4 g/dL (3.4-4.8)
[2021-10-01 09:14] LABS: CALCIUM 10.3 mg/dL (8.3-10.5)
[2021-10-01 09:15] LABS: TOTAL PROTEIN 7.2 g/dL (6.2-8.1)
[2021-10-01 09:17] LABS: TOTAL BILIRUBIN 0.5 mg/dL (0.2-1.2)
== END ==
LOC: LAB 07:08
PROVIDERS: Internal Medicine
DX: E78.5 Hyperlipidemia, unspecified (principal); E11.9 Type 2 diabetes mellitus without complications

== ENCOUNTER 2021-10-18 08:39 | Outpatient (RCR) | payer MEDICARE, BC | END 2021-11-15 | disposition home or self-care (01) | LOC: PT | DX: M15.9 Polyosteoarthritis, unspecified (principal) ==

== ENCOUNTER → 2021-12-31 | Outpatient (CLI) | payer MEDICARE, BC ==
[2021-12-31 07:28] LABS: BASO # 0.02 K/mm3 (0.02-0.10); EOS # 0.15 K/mm3 (0.04-0.40); EOS % 2.2 % (1.0-5.0); HEMOGLOBIN 13.3 g/dL (12.5-16.0); LYMPH# 1.59 K/mm3 (1.50-4.00); MEAN CELL VOLUME 96 fl (78-100); MEAN CORPUSCULAR HEMOGLOBIN 31 pg (27-31); MEAN CORPUSCULAR HGB CONC 32 g/dL (33-37); MEAN PLATELET VOLUME 9.3 fl (7.4-10.4); MONO # 0.64 K/mm3 (0.20-0.80); NEU # 4.34 K/mm3 (1.40-6.50); PLATELET COUNT 292 K/mm3 (130-400); RED BLOOD COUNT 4.27 M/mm3 (4.10-5.30); RED CELL DISTRIBUTION WIDTH 13.1 % (11.5-14.5); WHITE BLOOD COUNT 6.8 K/mm3 (4.8-10.8)
[2021-12-31 09:13] LABS: ALBUMIN 4.3 g/dL (3.4-4.8); POTASSIUM 3.6 mmol/L (3.5-5.1)
[2021-12-31 09:14] LABS: CALCIUM 9.9 mg/dL (8.3-10.5)
[2021-12-31 09:15] LABS: TOTAL PROTEIN 6.9 g/dL (6.2-8.1)
[2021-12-31 09:17] LABS: TOTAL BILIRUBIN 0.5 mg/dL (0.2-1.2)
[2021-12-31 09:22] LABS: MAGNESIUM 1.65 mg/dL (1.60-2.60)
== END ==
LOC: LAB 07:01
PROVIDERS: Internal Medicine
DX: I10 Essential (primary) hypertension (principal); E11.9 Type 2 diabetes mellitus without complications; K90.9 Intestinal malabsorption, unspecified

== ENCOUNTER → 2022-01-07 | Outpatient (CLI) | payer MEDICARE, BC | LOC: RAD 09:30 | DX: M25.762 Osteophyte, left knee (principal) ==

== ENCOUNTER → 2022-07-22 | Outpatient (CLI) | payer MEDICARE, BC ==
[2022-07-22 07:38] LABS: BASO # 0.02 K/mm3 (0.02-0.10); EOS # 0.14 K/mm3 (0.04-0.40); EOS % 1.3 % (1.0-5.0); HEMOGLOBIN 13.7 g/dL (12.5-16.0); LYMPH# 1.57 K/mm3 (1.50-4.00); MEAN CELL VOLUME 97 fl (78-100); MEAN CORPUSCULAR HEMOGLOBIN 32 pg (27-31); MEAN CORPUSCULAR HGB CONC 33 g/dL (33-37); MEAN PLATELET VOLUME 9.2 fl (7.4-10.4); MONO # 0.92 K/mm3 (0.20-0.80); NEU # 8.02 K/mm3 (1.40-6.50); PLATELET COUNT 301 K/mm3 (130-400); RED BLOOD COUNT 4.31 M/mm3 (4.10-5.30); RED CELL DISTRIBUTION WIDTH 13.1 % (11.5-14.5); WHITE BLOOD COUNT 10.7 K/mm3 (4.8-10.8)
[2022-07-22 07:42] LABS: ALBUMIN 4.3 g/dL (3.4-4.8); POTASSIUM 4.2 mmol/L (3.5-5.1)
[2022-07-22 07:43] LABS: CALCIUM 10.3 mg/dL (8.3-10.5)
[2022-07-22 07:46] LABS: TOTAL BILIRUBIN 0.5 mg/dL (0.2-1.2)
[2022-07-22 07:51] LABS: MAGNESIUM 1.77 mg/dL (1.60-2.60)
[2022-07-22 08:47] LABS: ERYTHROCYTE SEDIMENTATION RATE 19 mm/hr (0-30)
[2022-07-22 11:38] LABS: URINE APPEARANCE HAZY; URINE BILIRUBIN NEGATIVE (NEGATIVE); URINE BLOOD TRACE (NEGATIVE); URINE COLOR YELLOW; URINE GLUCOSE NEGATIVE (NEGATIVE); URINE KETONE NEGATIVE (NEGATIVE); URINE LEUKOCYTE ESTERASE TRACE (NEGATIVE); URINE NITRATE NEGATIVE (NEGATIVE); URINE PROTEIN(semi-quant) TRACE (NEGATIVE); URINE UROBILINOGEN NORMAL (NORMAL)
== END ==
LOC: LAB 07:05
PROVIDERS: Internal Medicine
DX: Z12.11 Encounter for screening for malignant neoplasm of colon (principal); I10 Essential (primary) hypertension; E78.5 Hyperlipidemia, unspecified; E11.9 Type 2 diabetes mellitus without complications; K90.9 Intestinal malabsorption, unspecified

== ENCOUNTER → 2023-03-18 | Outpatient (RCR) | payer MEDICARE, BC | LOC: PT | DX: M25.511 Pain in right shoulder (principal) ==

== ENCOUNTER 2023-03-20 07:50 | Outpatient (RCR) | payer MEDICARE, BC | END 2023-04-17 | disposition home or self-care (01) | LOC: PT | DX: M25.511 Pain in right shoulder (principal) ==

== ENCOUNTER → 2023-04-17 | Outpatient (CLI) | payer MEDICARE, BC | LOC: LAB 07:07 | DX: M85.80 Other specified disorders of bone density and structure, unspecified site (principal); I10 Essential (primary) hypertension; E11.9 Type 2 diabetes mellitus without complications; E53.8 Deficiency of other specified B group vitamins; K90.9 Intestinal malabsorption, unspecified; E55.9 Vitamin D deficiency, unspecified; M15.9 Polyosteoarthritis, unspecified; E78.5 Hyperlipidemia, unspecified; M75.41 Impingement syndrome of right shoulder ==

== ENCOUNTER 2023-04-22 08:00 | Outpatient (RCR) | payer MEDICARE, BC | END 2023-05-18 | disposition home or self-care (01) | LOC: PT | DX: M25.511 Pain in right shoulder (principal) ==

== ENCOUNTER 2023-05-20 08:00 | Outpatient (RCR) | payer MEDICARE, BC | END 2023-06-18 | disposition home or self-care (01) | LOC: PT | DX: M25.511 Pain in right shoulder (principal) ==

== ENCOUNTER 2023-06-19 08:00 | Outpatient (RCR) | payer MEDICARE, BC | END 2023-07-01 17:00 | disposition home or self-care (01) | LOC: PT 08:00 | DX: M25.511 Pain in right shoulder (principal) ==

== ENCOUNTER → 2023-08-08 | Outpatient (CLI) | payer MEDICARE, BC ==
[2023-08-08 07:37] LABS: HEMATOCRIT 43.9 % (37.0-47.0); HEMOGLOBIN 14.4 g/dL (12.5-16.0); LYMPH# 1.25 K/mm3 (1.50-4.00); MEAN CELL VOLUME 98 fl (78-100); MEAN CORPUSCULAR HEMOGLOBIN 32 pg (27-31); MEAN CORPUSCULAR HGB CONC 33 g/dL (33-37); MEAN PLATELET VOLUME 9.7 fl (7.4-10.4); MONO # 0.66 K/mm3 (0.20-0.80); NEU # 6.94 K/mm3 (1.40-6.50); PLATELET COUNT 350 K/mm3 (130-400); RED CELL DISTRIBUTION WIDTH 12.7 % (11.5-14.5); WHITE BLOOD COUNT 8.9 K/mm3 (4.8-10.8)
[2023-08-08 07:42] LABS: ALBUMIN 4.7 g/dL (3.4-4.8)
[2023-08-08 07:43] LABS: CALCIUM 11.1 mg/dL (8.3-10.5)
[2023-08-08 07:45] LABS: TOTAL PROTEIN 7.7 g/dL (6.2-8.1)
[2023-08-08 07:46] LABS: TOTAL BILIRUBIN 0.6 mg/dL (0.2-1.2)
[2023-08-08 07:51] LABS: MAGNESIUM 2.01 mg/dL (1.60-2.60)
[2023-08-08 16:54] LABS: HEPATITIS C VIRUS ANTIBODY Negative (Negative)
== END ==
LOC: LAB 07:10
PROVIDERS: Internal Medicine
DX: Z11.59 Encounter for screening for other viral diseases (principal); I10 Essential (primary) hypertension; E78.5 Hyperlipidemia, unspecified; M85.80 Other specified disorders of bone density and structure, unspecified site; E11.9 Type 2 diabetes mellitus without complications

== ENCOUNTER → 2023-10-06 | Outpatient (CLI) | payer MEDICARE, BC ==
[~2023-10-06] MED LIST changes: +GABAPENTIN100 MG PO; +PANTOPRAZOLE SO40 MG PO; +POTASSIUM CHLO10 ME7 PO; +RYBELSUS7 MG PO; +TOBRAMYCIN 5 ML5 ML OP; +VALACYCLOVIR1 GM PO
[2023-11-25 13:44] LABS: ALBUMIN 4.5 g/dL (3.4-4.8); CALCIUM 10.3 mg/dL (8.3-10.5); MAGNESIUM 1.93 mg/dL (1.60-2.60); TOTAL BILIRUBIN 0.7 mg/dL (0.2-1.2); TOTAL PROTEIN 7.2 g/dL (6.2-8.1)
[2023-11-25 13:52] LABS: BASO # 0.02 K/mm3 (0.02-0.10); EOS # 0.02 K/mm3 (0.04-0.40); EOS % 0.2 % (1.0-5.0); HEMATOCRIT 42.9 % (37.0-47.0); HEMOGLOBIN 14.3 g/dL (12.5-16.0); LYMPH# 1.55 K/mm3 (1.50-4.00); MEAN CELL VOLUME 96 fl (78-100); MEAN CORPUSCULAR HEMOGLOBIN 32 pg (27-31); MEAN CORPUSCULAR HGB CONC 33 g/dL (33-37); MEAN PLATELET VOLUME 9.1 fl (7.4-10.4); MONO # 0.83 K/mm3 (0.20-0.80); NEU # 7.49 K/mm3 (1.40-6.50); PLATELET COUNT 358 K/mm3 (130-400); RED BLOOD COUNT 4.48 M/mm3 (4.10-5.30); RED CELL DISTRIBUTION WIDTH 12.9 % (11.5-14.5)
== END ==
LOC: LAB 12:30
PROVIDERS: Internal Medicine
DX: I10 Essential (primary) hypertension (principal)

== ENCOUNTER → 2023-11-03 | Outpatient (CLI) | payer MEDICARE, BC ==
[2023-11-03 07:02] LABS: ALBUMIN 3.9 g/dL (3.4-4.8)
[2023-11-03 07:04] LABS: CALCIUM 10.3 mg/dL (8.3-10.5)
[2023-11-03 07:05] LABS: TOTAL PROTEIN 6.5 g/dL (6.2-8.1)
[2023-11-03 07:07] LABS: TOTAL BILIRUBIN 0.6 mg/dL (0.2-1.2)
[2023-11-03 07:11] LABS: MAGNESIUM 1.73 mg/dL (1.60-2.60)
== END ==
LOC: LAB 06:34
PROVIDERS: Internal Medicine
DX: E78.5 Hyperlipidemia, unspecified (principal); I10 Essential (primary) hypertension; E11.9 Type 2 diabetes mellitus without complications

== ENCOUNTER 2023-11-16 09:28 | Observation (INO) | payer MEDICARE, BC ==
[~2023-11-16] VITALS: Ht 160 cm; Wt 95.4 kg
[~2023-11-16 09:28] MED LIST changes: -GABAPENTIN100 MG PO; -PANTOPRAZOLE SO40 MG PO; -POTASSIUM CHLO10 ME7 PO; -RYBELSUS7 MG PO; -TOBRAMYCIN 5 ML5 ML OP; -VALACYCLOVIR1 GM PO
[2023-11-16] MEDS ORDERED: GABAPENTIN100 MG PO (09:38)
[2023-11-16] MEDS ORDERED: VALACYCLOVIR1 GM PO (09:38)
[2023-11-16] MEDS ORDERED: NS 1,000 ML IV SCH (09:45)
[2023-11-16 09:50] LABS: BASO # 0.02 K/mm3 (0.02-0.10); EOS # 0.01 K/mm3 (0.04-0.40); EOS % 0.1 % (1.0-5.0); HEMOGLOBIN 13.2 g/dL (12.5-16.0); LYMPH# 1.14 K/mm3 (1.50-4.00); MEAN CELL VOLUME 97 fl (78-100); MEAN CORPUSCULAR HEMOGLOBIN 32 pg (27-31); MEAN CORPUSCULAR HGB CONC 33 g/dL (33-37); MEAN PLATELET VOLUME 8.8 fl (7.4-10.4); MONO # 0.82 K/mm3 (0.20-0.80); NEU # 9.79 K/mm3 (1.40-6.50); PLATELET COUNT 383 K/mm3 (130-400); RED BLOOD COUNT 4.13 M/mm3 (4.10-5.30); WHITE BLOOD COUNT 11.8 K/mm3 (4.8-10.8)
[2023-11-16 09:57] LABS: CALCIUM 9.7 mg/dL (8.3-10.5)
[2023-11-16 09:59] LABS: TOTAL PROTEIN 6.6 g/dL (6.2-8.1)
[2023-11-16 10:00] LABS: TOTAL BILIRUBIN 0.6 mg/dL (0.2-1.2)
[2023-11-16] MEDS ORDERED: TOBRAMYCIN 5 ML5 ML OP (11:27)
[2023-11-16] MEDS ORDERED: RYBELSUS7 MG PO (11:29)
[2023-11-16 11:30] VITALS: BP 146/83
[2023-11-16] MEDS ORDERED: Polyethylene Glycol 3350 Powder 17 GM PACKET PO PRN (11:30)
[2023-11-16] MEDS ORDERED: Acetaminophen 500 MG TAB PO PRN (11:30)
[2023-11-16] MEDS ORDERED: Ondansetron 4 MG/2 ML VIAL IV PRN (11:30)
[2023-11-16] MEDS ORDERED: PANTOPRAZOLE SO40 MG PO (11:31)
[2023-11-16] MEDS ORDERED: POTASSIUM CHLO10 ME7 PO (11:31)
[2023-11-16] MEDS ORDERED: Insulin Aspart (NovoLOG) SQ SCH (12:08)
[2023-11-16] MEDS ORDERED: Dextrose 50% Water 25 GM/50 ML SYRINGE IV PRN (12:15)
[2023-11-16] MEDS ORDERED: Dextrose (Glucose) 15 GM (4 x 3.75 GM) Chewable TAB PACK PO PRN (12:15)
[2023-11-16] MEDS ORDERED: Glucagon 1 MG VIAL IM PRN (12:15)
[2023-11-16 15:16] VITALS: BP 137/84
[2023-11-16 18:32] VITALS: BP 158/76
--- NOTE | 2023-11-16 19:42 | NUR ---
PER PROVIDER, OKAY FOR PT TO TAKE HOME MEDS. PT IS KEEPING MEDS IN HER ROOM 1830 tOBRAMYCIN EYE DROP, 1 DROP INTO THE L EYE AT THIS TIME.
[2023-11-16 20:11] LABS: CALCIUM 9.4 mg/dL (8.3-10.5)
[2023-11-16] MEDS ORDERED: valACYclovir 500 MG TABLET PO SCH (21:00)
[2023-11-16] MEDS ORDERED: Gabapentin 100 MG CAP PO SCH (21:00)
[2023-11-16 22:00] VITALS: BP 157/74
[2023-11-17 02:00] VITALS: BP 132/79
[2023-11-17 05:24] VITALS: BP 157/77
[2023-11-17 06:24] LABS: BASO # 0.02 K/mm3 (0.02-0.10); EOS # 0.07 K/mm3 (0.04-0.40); HEMATOCRIT 35.1 % (37.0-47.0); HEMOGLOBIN 11.7 g/dL (12.5-16.0); MEAN CELL VOLUME 98 fl (78-100); MEAN CORPUSCULAR HEMOGLOBIN 33 pg (27-31); MEAN CORPUSCULAR HGB CONC 33 g/dL (33-37); MONO # 0.54 K/mm3 (0.20-0.80); NEU # 5.18 K/mm3 (1.40-6.50); PLATELET COUNT 329 K/mm3 (130-400); RED BLOOD COUNT 3.58 M/mm3 (4.10-5.30); RED CELL DISTRIBUTION WIDTH 13.4 % (11.5-14.5); WHITE BLOOD COUNT 7.1 K/mm3 (4.8-10.8)
[2023-11-17 06:39] LABS: CALCIUM 8.8 mg/dL (8.3-10.5)
[2023-11-17] MEDS ORDERED: hydroCHLOROthiazide 25 MG TAB PO SCH ×2 (09:00)
[2023-11-17] MEDS ORDERED: Spironolactone 25 MG TAB PO SCH (09:00)
[2023-11-17 10:00] VITALS: BP 132/76
--- NOTE | 2023-11-17 14:01 | NUR ---
Spoke with Pat regarding her insurance. She is concerned that she is in observation and not acute. She said someone did not know if her insurance would pay for this stay. I advised her that her insurance would cover her stay her. She was in observation at this time. Dr. Lazar has ordered PT/OT evaluations. Gave information on [facility] in our area. [place] [facility] [place]
[2023-11-17 14:05] VITALS: BP 156/79
--- NOTE | 2023-11-17 15:12 | NUR ---
Pt has voiced she does not feel she is ready to go home even if lab is better. She has expressed to provder too.
[2023-11-17 17:13] LABS: CALCIUM 9.2 mg/dL (8.3-10.5)
[2023-11-17 18:00] VITALS: BP 142/78
[2023-11-17 22:00] VITALS: BP 167/92
[2023-11-18 02:10] VITALS: BP 170/83
[2023-11-18 06:00] LABS: CALCIUM 8.8 mg/dL (8.3-10.5)
[2023-11-18 06:03] VITALS: BP 167/98
[2023-11-18 10:29] VITALS: BP 149/76
--- NOTE | 2023-11-18 11:32 | NUR ---
Teresita Coleman is being discharged to home today. She has chosen [facility] for front wheeled walker. She has chosen [facility] for home health services. PT/OT/SN Her Designated Health Care Agen is Nicole Colmenares, and/or [facility] [phone]. Either one will pick her up around 12 noon today. [facility] will loan a fww to Teresita until DME is delivered around 5 pm today.
--- NOTE | 2023-11-18 13:35 | NUR ---
pt alert and oriented. skin warm and dry. pt wheeled in wheelchair to friends vehicle. all belongings returned including lortab from lockbox. questions answered.
== END 2023-11-18 13:35 | disposition home or self-care (01) ==
LOC: ED 09:28 → MED/SURG 11:22
PROVIDERS: ADMIT Family Medicine
DX: E87.6 Hypokalemia (principal); R53.1 Weakness; E11.9 Type 2 diabetes mellitus without complications; B02.30 Zoster ocular disease, unspecified; B02.9 Zoster without complications; W19.XXXA Unspecified fall, initial encounter; S50.811A Abrasion of right forearm, initial encounter; Y93.9 Activity, unspecified; Z79.4 Long term (current) use of insulin
CPT/HCPCS: G0378; J7030; J7120

== ENCOUNTER 2024-01-21 07:44 | Outpatient (RCR) | payer MEDICARE, BC ==
[~2024-01-21 07:44] MED LIST changes: +GABAPENTIN100 MG PO; +PANTOPRAZOLE SO40 MG PO; +POTASSIUM CHLO10 ME7 PO; +RYBELSUS7 MG PO; +TOBRAMYCIN 5 ML5 ML OP; +VALACYCLOVIR1 GM PO
== END 2024-02-16 | disposition home or self-care (01) ==
LOC: PT
DX: M62.81 Muscle weakness (generalized) (principal)

== ENCOUNTER → 2024-02-04 | Outpatient (CLI) | payer MEDICARE, BC ==
[2024-02-04 07:52] LABS: ALBUMIN 3.9 g/dL (3.4-4.8)
[2024-02-04 07:54] LABS: CALCIUM 9.4 mg/dL (8.3-10.5)
[2024-02-04 07:55] LABS: TOTAL PROTEIN 6.4 g/dL (6.2-8.1)
[2024-02-04 08:22] LABS: TOTAL BILIRUBIN 0.6 mg/dL (0.2-1.2)
== END ==
LOC: LAB 07:25
PROVIDERS: Internal Medicine
DX: I10 Essential (primary) hypertension (principal); E11.9 Type 2 diabetes mellitus without complications

== ENCOUNTER 2024-03-22 08:00 | Outpatient (RCR) | payer MEDICARE, BC | END 2024-04-06 14:22 | LOC: PT 08:00 | DX: M62.81 Muscle weakness (generalized) (principal) ==

== ENCOUNTER → 2024-05-05 | Outpatient (CLI) | payer MEDICARE, BC ==
[2024-05-05 07:56] LABS: BASO # 0.02 K/mm3 (0.02-0.10); EOS % 1.5 % (1.0-5.0); HEMATOCRIT 41.3 % (37.0-47.0); HEMOGLOBIN 13.3 g/dL (12.5-16.0); LYMPH# 1.54 K/mm3 (1.50-4.00); MEAN CELL VOLUME 97 fl (78-100); MEAN CORPUSCULAR HEMOGLOBIN 31 pg (27-31); MEAN CORPUSCULAR HGB CONC 32 g/dL (33-37); MEAN PLATELET VOLUME 9.1 fl (7.4-10.4); MONO # 0.64 K/mm3 (0.20-0.80); NEU # 4.29 K/mm3 (1.40-6.50); PLATELET COUNT 338 K/mm3 (130-400); RED BLOOD COUNT 4.27 M/mm3 (4.10-5.30); RED CELL DISTRIBUTION WIDTH 12.6 % (11.5-14.5); WHITE BLOOD COUNT 6.6 K/mm3 (4.8-10.8)
[2024-05-05 08:10] LABS: ALBUMIN 4.2 g/dL (3.4-4.8)
[2024-05-05 08:13] LABS: TOTAL PROTEIN 6.6 g/dL (6.2-8.1)
[2024-05-05 08:15] LABS: TOTAL BILIRUBIN 0.5 mg/dL (0.2-1.2)
[2024-05-05 08:20] LABS: MAGNESIUM 1.9 mg/dL (1.60-2.60)
[2024-05-05 10:52] LABS: URINE APPEARANCE CLEAR (CLEAR); URINE BILIRUBIN NEGATIVE (NEGATIVE); URINE BLOOD NEGATIVE (NEGATIVE); URINE COLOR YELLOW (YELLOW); URINE GLUCOSE NEGATIVE (NEGATIVE); URINE KETONE TRACE (NEGATIVE); URINE LEUKOCYTE ESTERASE NEGATIVE (NEGATIVE); URINE NITRATE NEGATIVE (NEGATIVE); URINE PROTEIN(semi-quant) 1+ (NEGATIVE)
== END ==
LOC: LAB 07:01
PROVIDERS: Internal Medicine
DX: I10 Essential (primary) hypertension (principal); E78.5 Hyperlipidemia, unspecified; E11.9 Type 2 diabetes mellitus without complications; K90.9 Intestinal malabsorption, unspecified

== ENCOUNTER → 2024-06-19 | Outpatient (CLI) | payer MEDICARE, BC ==
[2024-06-19 09:54] LABS: EOS # 0.01 K/mm3 (0.04-0.40); EOS % 0.1 % (1.0-5.0); HEMATOCRIT 42.2 % (37.0-47.0); HEMOGLOBIN 13.7 g/dL (12.5-16.0); LYMPH# 1.38 K/mm3 (1.50-4.00); MEAN CELL VOLUME 95 fl (78-100); MEAN CORPUSCULAR HEMOGLOBIN 31 pg (27-31); MEAN CORPUSCULAR HGB CONC 33 g/dL (33-37); MEAN PLATELET VOLUME 9.1 fl (7.4-10.4); MONO # 0.77 K/mm3 (0.20-0.80); NEU # 7.38 K/mm3 (1.40-6.50); PLATELET COUNT 337 K/mm3 (130-400); RED BLOOD COUNT 4.44 M/mm3 (4.10-5.30); WHITE BLOOD COUNT 9.6 K/mm3 (4.8-10.8)
[2024-06-19 10:03] LABS: ALBUMIN 4.4 g/dL (3.4-4.8)
[2024-06-19 10:04] LABS: CALCIUM 9.9 mg/dL (8.3-10.5)
[2024-06-19 10:06] LABS: TOTAL PROTEIN 7.6 g/dL (6.2-8.1)
[2024-06-19 10:07] LABS: TOTAL BILIRUBIN 0.6 mg/dL (0.2-1.2)
[2024-06-19 10:08] LABS: URINE COLOR YELLOW (YELLOW)
[2024-06-19 10:10] LABS: URINE BILIRUBIN NEGATIVE (NEGATIVE); URINE GLUCOSE NEGATIVE (NEGATIVE); URINE KETONE NEGATIVE (NEGATIVE); URINE PROTEIN(semi-quant) TRACE (NEGATIVE)
[2024-06-19 10:11] LABS: URINE APPEARANCE CLOUDY (CLEAR); URINE BLOOD NEGATIVE (NEGATIVE); URINE LEUKOCYTE ESTERASE 1+ (NEGATIVE); URINE NITRATE NEGATIVE (NEGATIVE); URINE WBC 16-30 /hpf (0-3)
[2024-06-19 10:12] LABS: MAGNESIUM 1.96 mg/dL (1.60-2.60)
== END ==
LOC: LAB 09:36
PROVIDERS: Internal Medicine
DX: Z01.812 Encounter for preprocedural laboratory examination (principal)

== ENCOUNTER → 2024-06-21 | Outpatient (CLI) | payer MEDICARE, BC | LOC: RAD 07:06 | DX: Z01.818 Encounter for other preprocedural examination (principal) ==

== ENCOUNTER → 2024-06-24 | Outpatient (CLI) | payer MEDICARE, BC ==
[2024-06-24 06:53] LABS: PH-URINE 5.5 (5.0 - 8.0); URINE APPEARANCE CLEAR (CLEAR); URINE BILIRUBIN NEGATIVE (NEGATIVE); URINE BLOOD NEGATIVE (NEGATIVE); URINE COLOR YELLOW (YELLOW); URINE GLUCOSE NEGATIVE (NEGATIVE); URINE KETONE NEGATIVE (NEGATIVE); URINE LEUKOCYTE ESTERASE NEGATIVE (NEGATIVE); URINE MUCUS PRESENT (NOT PRESENT); URINE NITRATE NEGATIVE (NEGATIVE); URINE PROTEIN(semi-quant) 1+ (NEGATIVE)
== END ==
LOC: LAB 06:29
PROVIDERS: Internal Medicine
DX: Z01.818 Encounter for other preprocedural examination (principal)

== ENCOUNTER → 2024-07-01 | Day surgery (SDC) | payer MEDICARE, BC ==
[~2024-07-01] MED LIST changes: +Balanced Salt Ophth Irrig 15 ML BOTTLE *BULK OP SCH; +Cyclopentolate 2% Ophth Soln 1 BOTTLE *BULK OP SCH; +EPINEPHrine 1 MG/ML (1:1000) 1 ML AMP IR SCH; +Ketorolac 0.5% Ophth Soln 5 ML Bottle *BULK OP SCH; +Midazolam 2 MG/2 ML VIAL IV ONE; +Phenylephrine 10% Ophth Soln 5 ML BOTTLE *BULK OP SCH; +Polymyxin B Sulfate/Trimethoprim Ophth Soln 10 ML BOTTLE *BULK OP SCH; +Proparacaine 0.5% Ophth Soln 15 ML BOTTLE *BULK OP SCH; +Tropicamide 1% Ophth Soln Bottle *BULK OP SCH
== END | disposition home or self-care (01) ==
LOC: MSO 09:18
DX: H25.13 Age-related nuclear cataract, bilateral (principal)
CPT/HCPCS: 00142; J0171; J2250; V2632

== ENCOUNTER 2024-07-10 14:17 | Emergency (ER) | payer MEDICARE, BC ==
[~2024-07-10] VITALS: Ht 157.5 cm; Wt 83.8 kg
[~2024-07-10 14:17] MED LIST changes: -Balanced Salt Ophth Irrig 15 ML BOTTLE *BULK OP SCH; -Cyclopentolate 2% Ophth Soln 1 BOTTLE *BULK OP SCH; -EPINEPHrine 1 MG/ML (1:1000) 1 ML AMP IR SCH; -Ketorolac 0.5% Ophth Soln 5 ML Bottle *BULK OP SCH; -Midazolam 2 MG/2 ML VIAL IV ONE; -Phenylephrine 10% Ophth Soln 5 ML BOTTLE *BULK OP SCH; -Polymyxin B Sulfate/Trimethoprim Ophth Soln 10 ML BOTTLE *BULK OP SCH; -Proparacaine 0.5% Ophth Soln 15 ML BOTTLE *BULK OP SCH; -Tropicamide 1% Ophth Soln Bottle *BULK OP SCH
[2024-07-10 14:43] LABS: BASO # 0.01 K/mm3 (0.02-0.10); EOS # 0.04 K/mm3 (0.04-0.40); EOS % 0.4 % (1.0-5.0); HEMATOCRIT 41.5 % (37.0-47.0); HEMOGLOBIN 13.8 g/dL (12.5-16.0); LYMPH# 1.33 K/mm3 (1.50-4.00); MEAN CELL VOLUME 94 fl (78-100); MEAN CORPUSCULAR HEMOGLOBIN 31 pg (27-31); MEAN CORPUSCULAR HGB CONC 33 g/dL (33-37); MONO # 0.85 K/mm3 (0.20-0.80); NEU # 7.39 K/mm3 (1.40-6.50); PLATELET COUNT 294 K/mm3 (130-400); RED BLOOD COUNT 4.44 M/mm3 (4.10-5.30); RED CELL DISTRIBUTION WIDTH 13.4 % (11.5-14.5); WHITE BLOOD COUNT 9.6 K/mm3 (4.8-10.8)
[2024-07-10 14:54] LABS: ALBUMIN 4.1 g/dL (3.4-4.8); SODIUM 134 mmol/L (136-145)
[2024-07-10 14:55] VITALS: BP 167/82
[2024-07-10 14:55] LABS: CALCIUM 9.9 mg/dL (8.3-10.5)
[2024-07-10 14:56] LABS: GLUCOSE 300 mg/dL (65-105)
[2024-07-10 14:58] LABS: CARBON DIOXIDE 21 mmol/L (23-31); TOTAL BILIRUBIN 0.6 mg/dL (0.2-1.2)
[2024-07-10 15:02] LABS: AST-SGOT 18 U/L (5-34)
[2024-07-10 15:03] LABS: ALT/SGPT 33 U/L (0-55)
[2024-07-10 15:05] LABS: TROPONIN-I < 0.030 ng/mL (0.00-0.033)
[2024-07-10] MEDS ORDERED: NORCO 325 MG-51 TA1 PO (16:03)
[2024-07-10] MEDS ORDERED: Home HYDROcodone/Acetaminophen 5/325 MG #4 TABS/PACK PO ONE (16:15)
== END 2024-07-10 16:25 | disposition home or self-care (01) ==
LOC: ED 14:17
PROVIDERS: Family Medicine
DX: S82.441A Displaced spiral fracture of shaft of right fibula, initial encounter for closed fracture (principal); R55 Syncope and collapse; W08.XXXA Fall from other furniture, initial encounter; Y92.512 Supermarket, store or market as the place of occurrence of the external cause
CPT/HCPCS: L4386